=== PATIENT | male | born 1995 | race Caucasian/White ===

== ENCOUNTER 2021-09-23 01:16 | Emergency (ER) | payer MEDICAID ==
--- NOTE | 2021-09-23 02:10 | Emergency Department Report ---
HPI - General Chief Complaint: Psych Time Seen by Provider: 09/23/21 01:42 - HPI HPI: 26-year-old -Eth[place]ian male presents to the emergency department via EMS for a mental health evaluation after he was found wandering in the street. The mother says that she went to use the bathroom and when she came out he was gone and he was found a few blocks down the street. Patient told EMS that he "has murphy." The patient has a history of schizophrenia. They just recently moved up here from [place] and mom says that he was most recently inpatient in a psychiatric facility about 1 month ago. He is not currently on any medications as she says that he was discharged from the psychiatric facility without any. The patient is walking around the contains psychiatric unit in the emergency department and is walking both forwards and backwards. When asked what brings him to the emergency department he says "I have murphy." I asked his mother if he was recently diagnosed and she says that this is not true. ED Past Medical Hx - Past Medical History Hx Psychiatric Treatment: Yes (SCHIZPHRENIA) - Medications Home Medications: Home Medications Medication Instructions Recorded Confirmed Last Taken Type OLANzapine [ZyPREXA] 5 mg PO BID 30 Days #60 tablet 09/23/21 Unknown Rx ED Review of Systems ROS: Stated complaint: PSYCH Other details as noted in HPI Comment: Unobtainable due to pts medical conditions Physical Exam - Physical Exam Physical Exam: GENERAL: The patient is well-developed well-nourished. HENT: Normocephalic. Atraumatic. Patient has moist mucous membranes. EYES: Extraocular motions are intact. NECK: Supple. Trachea is midline. CHEST/LUNGS: Clear to auscultation. There is no respiratory distress noted. HEART/CARDIOVASCULAR: Regular. There is mild tachycardia. There is no murmur. ABDOMEN: Abdomen is soft, nontender. Patient has normal bowel sounds. There is no abdominal distention. SKIN: Skin is warm and dry. NEURO: The patient is awake and alert. He is ambulatory. He is not cooperative. MUSCULOSKELETAL: There is no tenderness or deformity. There is no limitation range of motion. PSYCH: The patient is continuously wandering around the room going between forwards and backwards. ED Medical Decision Making - Lab Data Result diagrams: 09/23/21 01:47 01/22/22 01:47 Lab Results 09/23/21 09/23/21 09/23/21 Range/Units 01:47 01:47 01:47 WBC 3.7 L (4.5-11.0) K/mm3 RBC 5.22 H (3.65-5.03) M/mm3 Hgb 15.0 (11.8-15.2) gm/dl Hct 45.7 H (35.5-45.6) % MCV 88 (84-94) fl MCH 29 (28-32) pg MCHC 33 (32-34) % RDW 14.4 (13.2-15.2) % Plt Count 274 (140-440) K/mm3 Lymph % (Auto) 43.3 H (13.4-35.0) % [place] % (Auto) 9.0 H (0.0-7.3) % Eos % (Auto) 1.1 (0.0-4.3) % Baso % (Auto) 0.7 (0.0-1.8) % Lymph # (Auto) 1.6 (1.2-5.4) K/mm3 Wheeler # (Auto) 0.3 (0.0-0.8) K/mm3 Eos # (Auto) 0.0 (0.0-0.4) K/mm3 Baso # (Auto) 0.0 (0.0-0.1) K/mm3 Seg Neutrophils % 45.9 (40.0-70.0) % Seg Neutrophils # 1.7 L (1.8-7.7) K/mm3 Sodium 145 (137-145) mmol/L Potassium 4.2 (3.6-5.0) mmol/L Chloride 104.9 (98-107) mmol/L Carbon Dioxide 24 (22-30) mmol/L Anion Gap 20 mmol/L BUN 6 L (9-20) mg/dL Creatinine 0.7 L (0.8-1.3) mg/dL Estimated GFR > 60 ml/min BUN/Creatinine Ratio 9 % Glucose 89 (75-100) mg/dL Calcium 10.1 (8.4-10.2) mg/dL Plasma/Serum Alcohol < 0.01 (0-0.07) % - Medical Decision Making This patient presents to the emergency department after he was found wandering down the street from his home. He told EMS that he recently tested positive for COVID-19. After speaking to the patient's mother, he has a history of schizophrenia and is not on any medications. When he has an exacerbation of his schizophrenia he often will just start wandering away from home. The patient is seen walking forwards and backwards around the psychiatric detainment area of the emergency department. He is not redirectable. He does not answer most questions except for when I asked if he was here for a mental health evaluation and he once again told me that he was here because he was positive for COVID-19. His mother denies that he had any recent testing done. In this current state he does not appear to be able to take care of himself and does not have a normal decision-making capacity. For this reason he has been placed on a 1013. Labs thus far have been unremarkable including CBC, metabolic panel and blood alcohol level. He was given a dose of Xanax as he was seen wandering around his psychiatric room for multiple hours without stopping. We are still waiting for a urine sample for urinalysis and UDS. The patient will be seen by the psychiatric team in the morning to do their evaluation and assist with disposition. Critical Care Time: No Critical care attestation.: If time is entered above; I have spent that time in minutes in the direct care of this critically ill patient, excluding procedure time. ED Disposition Clinical Impression: Acute psychosis Disposition: 01 HOME / SELF CARE / HOMELESS Is pt being admited?: No Condition: Stable Additional Instructions: OUTPATIENT MENTAL HEALTH RESOURCES [facility], [facility] Michael Coleman MD: [address] [place] [address] [place] [address] [facility] [address] [place] [address] [place] [address] [phone] [facility]: [facility] Healthcare: [address] [facility] [address] [facility] [address] [place] [address] [facility] [address] [facility]: [place] Mary MD: [address] [facility] [address] [place], [place] [address] [facility]: [address] [place] [phone] [place] CRISIS AND ACCESS LINE: Prescriptions: OLANzapine [ZyPREXA] 5 mg PO BID 30 Days #60 tablet Referrals: PRIMARY CARE, [Primary Care Provider] - 3-5 Days
[2021-09-23 02:35] LABS: Basophils % (Auto) 0.7 % (0.0-1.8); Eosinophils % (Auto) 1.1 % (0.0-4.3); Hematocrit 45.7 % (35.5-45.6); Lymphocytes # (Auto) 1.6 K/mm3 (1.2-5.4); Lymphocytes % (Auto) 43.3 % (13.4-35.0); Mean Corpuscular HGB Conc 33 % (32-34); Mean Corpuscular Volume 88 fl (84-94); Monocytes # (Auto) 0.3 K/mm3 (0.0-0.8); Platelet Count 274 K/mm3 (140-440); Red Blood Count 5.22 M/mm3 (3.65-5.03); Red Cell Distribution Width 14.4 % (13.2-15.2)
[2021-09-23 02:48] LABS: Blood Urea Nitrogen 6 mg/dL (9-20); Calcium 10.1 mg/dL (8.4-10.2); Hemolysis Index 15
[2021-09-23 03:02] LABS: BUN/Creatinine Ratio 9
[2021-09-23] MEDS ORDERED: ALPRAZolam 1 MG TAB PO ONE ×2 (03:30→23:18)
--- NOTE | 2021-09-23 11:08 | Emergency Department Report ---
Blank Doc - Documentation Documentation: Patient is currently waiting on psychiatric evaluation. Urine is still pending. It is unlikely the patient has a urinary tract infection that would cause psychiatric decompensation. We will await psychiatric evaluation and disposition.
--- NOTE | 2021-09-23 11:32 | Consultation ---
History of Present Illness - Reason for Consult Consult date: 09/23/21 Reason for consult: mental health evaluation - History of Present Psychiatric Illness ED Note: 26-year-old -Surinamese male presents to the emergency department via EMS for a mental health evaluation after he was found wandering in the street. The mother says that she went to use the bathroom and when she came out he was gone and he was found a few blocks down the street. Patient told EMS that he "has murphy." The patient has a history of schizophrenia. They just recently moved up here from [place] and mom says that he was most recently inpatient in a psychiatric facility about 1 month ago. He is not currently on any medications as she says that he was discharged from the psychiatric facility without any. The patient is walking around the contains psychiatric unit in the emergency department and is walking both forwards and backwards. When asked what brings him to the emergency department he says "I have murphy." I asked his mother if he was recently diagnosed and she says that this is not true. Larry Anders is a 26 year old male with history of schizophrenia. In my interview with the patient, he is calm, alert and oriented x2. The patient was asked why he came to the ED, he states "I feel like I have murphy virus." The patient is a poor historian hence history was difficult to obtain. The patient denies any current suicidal/homicidal ideation and denies hallucinations. PAST PSYCHIATRIC HISTORY: Diagnoses:Schizophrenia Suicide attempts or Self-harm behavior: Denies Prior psychiatric hospitalizations: Yes Substance Abuse history:Unknown Outpatient treatment: Unknown PAST MEDICAL HISTORY: unknown Family Psychiatric History: None reported or documented SOCIAL HISTORY Marital Status:Single Living Arrangements: Live with mother and brother Employment Status:Unemployed Access to guns/weapons: Denies Education:12th History of Abuse:Denies Legal History: Denies REVIEW OF SYSTEMS Constitutional: Negative for weight loss ENT: Negative for stridor Respiratory: Negative for cough or hemoptysis All other systems reviewed and are negative MENTAL STATUS EXAMINATION General Appearance and Behavior: Age appropriate, good hygiene, wearing appropriate clothes. calm, cooperative Cooperation: Cooperative Psychomotor Behavior: Psychomotor normal Mood:calm Affect and affective range: congruent with stated mood Thought Process: Circumstantial Thought Content: Reality Oriented Speech: normal tone and pace Suicidal Ideation: Denies Homicidal Ideation: Denies Hallucinations: Denies Delusions:Denies Impulse Control: Limited Insight and Judgment: Limited insight and fair judgment Memory: Limited Attention: distracted Orientation: a/o x 2 Assessment (1)Hx of schizophrenia (2) Current Visit: Yes Status: Acute Treatment plan Continue previous prescribed meds Start Zyprexa 5mg po BID Risks, benefits and alternatives of medications discussed with the patient, questions answered and consent obtained from patient. PSYCHOTHERAPY: Supportive psychotherapy provided MEDICAL: Per primary team DELIRIUM PRECAUTIONS: Please re-orient patient frequently, keep lights on during the day, and minimize benzodiazepines and opiates as these medications could worsen patient's confusion. DIAMOND DIE DRILLER: Per medical team DISPOSITION: Do not Recommend acute inpatient psychiatric hospitalization. The patient is to follow up with outpatient psych in 7 to 14 days upon discharge. [employer] will provide patient with out patient resources. she is to abstain from all illicit drug use. Will sign off. Thank you for the consult. Please contact with any questions and/or concerns. Case staffed with Dr. Blandon Medications and Allergies Allergies Allergy/AdvReac Type Severity Reaction Status Date / Time No Known Allergies Allergy Verified 09/23/21 01:26 Home Medications Medication Instructions Recorded Confirmed Last Taken Type OLANzapine [ZyPREXA] 5 mg PO BID 30 Days #60 tablet 09/23/21 Unknown Rx Mental Status Exam - Vital signs Last Vital Signs Temp 98.0 F 09/23/21 02:39 Pulse 119 H 09/23/21 02:39 Resp 20 09/23/21 02:39 BP 145/80 09/23/21 02:39 Pulse Ox 97 09/23/21 02:39 Results Result Diagrams: 09/23/21 01:47 09/23/21 01:47 Abnormal lab results 09/23/21 09/23/21 Range/Units 01:47 01:47 WBC 3.7 L (4.5-11.0) K/mm3 RBC 5.22 H (3.65-5.03) M/mm3 Hct 45.7 H (35.5-45.6) % Lymph % (Auto) 43.3 H (13.4-35.0) % [place] % (Auto) 9.0 H (0.0-7.3) % Seg Neutrophils # 1.7 L (1.8-7.7) K/mm3 BUN 6 L (9-20) mg/dL Creatinine 0.7 L (0.8-1.3) mg/dL All other labs normal.
--- NOTE | 2021-09-23 11:59 | Event Note ---
1013 rescinded by mental health team. Patient is discharged home. Patient given outpatient resources and prescription for Zyprexa.
[2021-09-23 23:05] LABS: Bilirubin,Urine NEG (Negative); Blood,Urine NEG (Negative); Color,Urine Straw (Yellow); Protein,Urine <15 mg/dL mg/dL (Negative); Urobilinogen,Urine < 2.0 mg/dL (<2.0); WBC,Urine < 1.0 /HPF (0.0-6.0)
[2021-09-23 23:09] LABS: Amphetamine Screen,Urine Negative; Benzodiazepines Screen,Urine Negative; Cannabinoid Screen,Urine Negative; Cocaine Screen,Urine Negative; Methadone Screen,Urine Negative; Opiate Screen,Urine Negative
--- NOTE | 2021-09-24 11:42 | Emergency Department Report ---
Blank Doc - Documentation Documentation: Patient had been seen here for psychiatric issues. Patient was medically sumaya red and psychiatrically cleared. Unfortunately, we cannot get his guardian to picker tender the phone to come picker tender the patient. Case management is aware. I have asked the police to be notified and sent to the home. I have asked that Adult Protective Services be notified for patient abandonment.
--- NOTE | 2021-09-25 11:49 | Event Note ---
Date: 09/25/21 S: No events reported overnight O: Vital Signs - 8 hr 09/25/21 09:40 O2 Sat by Pulse 97 Oximetry A: Clear medically and by psych P: Awaiting safe discharge to guardian. Has been unable to contact her guardian for safe discharge PD has been contacted and attempt to locate guardian.
--- NOTE | 2021-09-26 11:15 | Event Note ---
Date: 09/26/21 pt was assessed , no risk at this time, dishcarge with OP follow up in 7-qr days vss no distress ab are nad
[2021-09-26] MEDS ORDERED: ZIPRASIDONE MESYLATE 20 MG VIAL IM PRN (13:34)
[2021-09-27 10:01] VITALS: BP 100/52
--- NOTE | 2021-09-27 11:34 | Emergency Department Report ---
Blank Doc - Documentation Documentation: Apparently the mother reportedly had no way of picking up her child. I have a sked for case management to arrange transfer. Patient will be discharged. There is no medical reason to keep the patient here when he could be placed in a taxi or over or even have police or some other wheelchair van transport the patient. I have also asked that Adult Protective Services be notified yet again of patient abandonment.
== END 2021-09-27 13:31 | disposition home or self-care (01) ==
LOC: ED 01:16
DX: F23 Brief psychotic disorder (principal); Z79.899 Other long term (current) drug therapy; Z20.822 Contact with and (suspected) exposure to COVID-19
CPT/HCPCS: 36415; 80048; 80307; 81001; 85025; 96372; 99284; J3486; U0003; 80320; G0480

== ENCOUNTER 2021-10-08 18:54 | Emergency (ER) | payer MEDICAID ==
--- NOTE | 2021-10-08 19:36 | Event Note ---
Date: 10/08/21 The patient was evaluated in the emergency department for symptoms described in the history of present illness. He/she was evaluated in the context of the global COVID-19 pandemic, which necessitated consideration that the patient might be at risk for infection with the virus that causes COVID-19. Institutional protocols and algorithms that pertain to the evaluation of patients at risk for COVID-19 are in a state of rapid change based on information released by regulatory bodies including the CDC and federal and state organizations. These policies and algorithms were followed during the patient's care in the emergency department. Please note that these policies, procedures and recommendations changed on a rapid basis. EMS documentation not available at time of chart dictation Verbal report received from emergency medical services Patient is a 26-year-old gentleman with a reported history of developmental delay and schizophrenia as per EMS, who was brought to the hospital because he is wandering. The patient is not agitated or combative at this time. Place patient on hold status, obtain appropriate psychiatric labs for medical clearance, detailed history and physical to be performed by oncoming ER provider.
--- NOTE | 2021-10-08 20:39 | XRay Report ---
CHEST 2 VIEWS INDICATION / CLINICAL INFORMATION: sob. COMPARISON: None available. FINDINGS: SUPPORT DEVICES: None. HEART / MEDIASTINUM: No significant abnormality. LUNGS / PLEURA: No significant pulmonary or pleural abnormality. No pneumothorax. ADDITIONAL FINDINGS: No significant additional findings. IMPRESSION: 1. No acute findings. Signer Name: Brandy Smyth MD Signed: 10/08/2021 8:34 PM Workstation Name: [id number]
--- NOTE | 2021-10-08 20:45 | Emergency Department Report ---
HPI - General Chief Complaint: Psych Time Seen by Provider: 10/08/21 19:17 - HPI HPI: 26-year-old male with history of schizophrenia and developmental delay brought in after he was found on the streets wandering. The patient says that he is here for shortness of breath. When asked how long he has had shortness of breath he says since yesterday. He denies any other associated symptoms including fever/chills headache, vision changes, neck pain, chest pain, cough, abdominal pain, nausea/vomiting, back pain, focal weakness, sensory change, dysuria, or any other symptoms. He is alert and oriented x4. He denies SI/HI or auditory/visual hallucinations. However, the patient is seen mumbling/speaking to himself. Further details of the HPI are highly limited due to the patient's current clinical condition. ED Past Medical Hx - Past Medical History Previous Medical History?: Yes Hx Psychiatric Treatment: Yes (SCHIZPHRENIA) - Surgical History Past Surgical History?: No - Medications Home Medications: Home Medications Medication Instructions Recorded Confirmed Last Taken Type OLANzapine [ZyPREXA] 5 mg PO BID 30 Days #60 tablet 10/09/21 Unknown Rx ED Review of Systems ROS: Stated complaint: PT WANDERING Other details as noted in HPI Comment: All other systems reviewed and negative Constitutional: denies: chills, fever Eyes: denies: eye pain, vision change ENT: denies: throat pain, congestion Respiratory: shortness of breath. denies: cough Cardiovascular: denies: chest pain, palpitations Gastrointestinal: denies: abdominal pain, nausea, vomiting Genitourinary: denies: dysuria, frequency Musculoskeletal: denies: back pain, arthralgia Skin: denies: rash, lesions Neurological: denies: headache, weakness, numbness Psychiatric: denies: auditory hallucinations, visual hallucinations, homicidal thoughts, suicidal thoughts Physical Exam - Physical Exam Vital Signs: Vital Signs 10/08/21 19:07 Temperature 98.2 F Pulse Rate 70 Respiratory 16 Rate Blood Pressure 140/60 [Left] O2 Sat by Pulse 98 Oximetry Physical Exam: GENERAL: Thin young male in no acute distress. Appears anxious. Patient seen speaking and mumbling to himself. HEAD: Normocephalic. No obvious signs of trauma. ENT: Moist mucous membranes. EYES: Extraocular movements are intact. Pupils are equal round and reactive to light bilaterally NECK: Supple. Full ROM is intact. Trachea is midline. LUNGS: Nonlabored breathing. Equal chest rise bilaterally. Clear to auscultation bilaterally. CARDIOVASCULAR: Regular rate and rhythm. No murmurs or rubs. VASCULAR: Cap refill < 2 seconds ABDOMEN: Abdomen is soft and nondistended. There is no significant tenderness, guarding or rebound. SKIN: Skin is warm and dry NEURO: Patient is awake, alert, and oriented. vendette II-XII grossly intact. No focal deficits. Normal motor and sensory exam throughout. Normal speech. MUSCULOSKELETAL: No obvious deformities. No significant tenderness. Normal ROM throughout. BACK/SPINE: No costovertebral angle tenderness. ED Course Vital Signs 10/08/21 19:07 Temperature 98.2 F Pulse Rate 70 Respiratory 16 Rate Blood Pressure 140/60 [Left] O2 Sat by Pulse 98 Oximetry ED Medical Decision Making - Lab Data Result diagrams: 10/08/21 21:21 10/09/21 04:55 Lab Results 10/08/21 10/08/21 10/08/21 Range/Units 20:44 20:44 21:21 WBC 4.2 L (4.5-11.0) K/mm3 RBC 4.78 (3.65-5.03) M/mm3 Hgb 13.8 (11.8-15.2) gm/dl Hct 41.8 (35.5-45.6) % MCV 88 (84-94) fl MCH 29 (28-32) pg MCHC 33 (32-34) % RDW 14.5 (13.2-15.2) % Plt Count 293 (140-440) K/mm3 Lymph % (Auto) 33.5 (13.4-35.0) % Glynn % (Auto) 8.2 H (0.0-7.3) % Eos % (Auto) 1.3 (0.0-4.3) % Baso % (Auto) 0.5 (0.0-1.8) % Lymph # (Auto) 1.4 (1.2-5.4) K/mm3 Glynn # (Auto) 0.3 (0.0-0.8) K/mm3 Eos # (Auto) 0.1 (0.0-0.4) K/mm3 Baso # (Auto) 0.0 (0.0-0.1) K/mm3 Seg Neutrophils % 56.5 (40.0-70.0) % Seg Neutrophils # 2.4 (1.8-7.7) K/mm3 Sodium (137-145) mmol/L Potassium (3.6-5.0) mmol/L Chloride (98-107) mmol/L Carbon Dioxide (22-30) mmol/L Anion Gap mmol/L BUN (9-20) mg/dL Creatinine (0.8-1.3) mg/dL Estimated GFR ml/min BUN/Creatinine Ratio % Glucose (75-100) mg/dL Calcium (8.4-10.2) mg/dL Urine Color Straw (Yellow) Urine Turbidity Clear (Clear) Urine pH 5.0 (5.0-7.0) Ur Specific [place] 1.016 (1.003-1.030) Urine Protein <15 mg/dl (Negative) mg/dL Urine Glucose (UA) Neg (Negative) mg/dL Urine Ketones Neg (Negative) mg/dL Urine Blood Neg (Negative) Urine Nitrite Neg (Negative) Urine Bilirubin Neg (Negative) Urine Urobilinogen < 2.0 (<2.0) mg/dL Ur Leukocyte Esterase Neg (Negative) Urine WBC (Auto) 1.0 (0.0-6.0) /HPF Urine RBC (Auto) 0.0 (0.0-6.0) /HPF Salicylates (2.8-20.0) mg/dL Urine Opiates Screen Negative Urine Methadone Screen Negative Acetaminophen (10.0-30.0) ug/mL Ur Barbiturates Screen Negative Ur Phencyclidine Scrn Negative Ur Amphetamines Screen Negative U Benzodiazepines Scrn Negative Urine Cocaine Screen Negative U Marijuana (THC) Screen Negative Drugs of Abuse Note Disclamer Plasma/Serum Alcohol (0-0.07) % 10/08/21 10/08/21 10/08/21 Range/Units 21:21 21:21 21:21 WBC (4.5-11.0) K/mm3 RBC (3.65-5.03) M/mm3 Hgb (11.8-15.2) gm/dl Hct (35.5-45.6) % MCV (84-94) fl MCH (28-32) pg MCHC (32-34) % RDW (13.2-15.2) % Plt Count (140-440) K/mm3 Lymph % (Auto) (13.4-35.0) % Glynn % (Auto) (0.0-7.3) % Eos % (Auto) (0.0-4.3) % Baso % (Auto) (0.0-1.8) % Lymph # (Auto) (1.2-5.4) K/mm3 Glynn # (Auto) (0.0-0.8) K/mm3 Eos # (Auto) (0.0-0.4) K/mm3 Baso # (Auto) (0.0-0.1) K/mm3 Seg Neutrophils % (40.0-70.0) % Seg Neutrophils # (1.8-7.7) K/mm3 Sodium 146 H (137-145) mmol/L Potassium 4.0 (3.6-5.0) mmol/L Chloride 108.2 H (98-107) mmol/L Carbon Dioxide 24 (22-30) mmol/L Anion Gap 18 mmol/L BUN 9 (9-20) mg/dL Creatinine 0.7 L (0.8-1.3) mg/dL Estimated GFR > 60 ml/min BUN/Creatinine Ratio 13 % Glucose 115 H (75-100) mg/dL Calcium 9.5 (8.4-10.2) mg/dL Urine Color (Yellow) Urine Turbidity (Clear) Urine pH (5.0-7.0) Ur Specific [place] (1.003-1.030) Urine Protein (Negative) mg/dL Urine Glucose (UA) (Negative) mg/dL Urine Ketones (Negative) mg/dL Urine Blood (Negative) Urine Nitrite (Negative) Urine Bilirubin (Negative) Urine Urobilinogen (<2.0) mg/dL Ur Leukocyte Esterase (Negative) Urine WBC (Auto) (0.0-6.0) /HPF Urine RBC (Auto) (0.0-6.0) /HPF Salicylates < 0.3 L (2.8-20.0) mg/dL Urine Opiates Screen Urine Methadone Screen Acetaminophen 5.0 L (10.0-30.0) ug/mL Ur Barbiturates Screen Ur Phencyclidine Scrn Ur Amphetamines Screen U Benzodiazepines Scrn Urine Cocaine Screen U Marijuana (THC) Screen Drugs of Abuse Note Plasma/Serum Alcohol (0-0.07) % 10/08/21 Range/Units 21:21 WBC (4.5-11.0) K/mm3 RBC (3.65-5.03) M/mm3 Hgb (11.8-15.2) gm/dl Hct (35.5-45.6) % MCV (84-94) fl MCH (28-32) pg MCHC (32-34) % RDW (13.2-15.2) % Plt Count (140-440) K/mm3 Lymph % (Auto) (13.4-35.0) % Glynn % (Auto) (0.0-7.3) % Eos % (Auto) (0.0-4.3) % Baso % (Auto) (0.0-1.8) % Lymph # (Auto) (1.2-5.4) K/mm3 Glynn # (Auto) (0.0-0.8) K/mm3 Eos # (Auto) (0.0-0.4) K/mm3 Baso # (Auto) (0.0-0.1) K/mm3 Seg Neutrophils % (40.0-70.0) % Seg Neutrophils # (1.8-7.7) K/mm3 Sodium (137-145) mmol/L Potassium (3.6-5.0) mmol/L Chloride (98-107) mmol/L Carbon Dioxide (22-30) mmol/L Anion Gap mmol/L BUN (9-20) mg/dL Creatinine (0.8-1.3) mg/dL Estimated GFR ml/min BUN/Creatinine Ratio % Glucose (75-100) mg/dL Calcium (8.4-10.2) mg/dL Urine Color (Yellow) Urine Turbidity (Clear) Urine pH (5.0-7.0) Ur Specific [place] (1.003-1.030) Urine Protein (Negative) mg/dL Urine Glucose (UA) (Negative) mg/dL Urine Ketones (Negative) mg/dL Urine Blood (Negative) Urine Nitrite (Negative) Urine Bilirubin (Negative) Urine Urobilinogen (<2.0) mg/dL Ur Leukocyte Esterase (Negative) Urine WBC (Auto) (0.0-6.0) /HPF Urine RBC (Auto) (0.0-6.0) /HPF Salicylates (2.8-20.0) mg/dL Urine Opiates Screen Urine Methadone Screen Acetaminophen (10.0-30.0) ug/mL Ur Barbiturates Screen Ur Phencyclidine Scrn Ur Amphetamines Screen U Benzodiazepines Scrn Urine Cocaine Screen U Marijuana (THC) Screen Drugs of Abuse Note Plasma/Serum Alcohol < 0.01 (0-0.07) % - Radiology Data Radiology results: report reviewed - Medical Decision Making 26-year-old male with history of schizophrenia brought in by EMS after he was found wandering outside. Patient reports that he is short of breath since yesterday. He denies SI/HI and denies visual or auditory hallucinations. However he is seen speaking to himself and appears anxious. His behavior is disorganized and consistent with acute psychosis. He is afebrile with normal vital signs. Physical examination reveals no significant abnormalities. Lungs are clear to auscultation. Given that the patient is acutely psychotic, I have ordered psych medical clearance labs. Will sign and initiate 1013 order. Will obtain chest x-ray given his reported shortness of breath, although I do not feel he is a reliable historian. Labs have resulted and reveal no significant leukocytosis or anemia. He has mild leukopenia with white blood cell count of 4.2. Creatinine is within normal range and there are no significant electrolyte abnormalities. UA is negative. While in the psych area, the patient became very agitated and was seen playing with his genitals. He was given Haldol/Benadryl for his agitation and acute psychosis. Chest x-ray reveals no acute abnormalities. The patient is medically clear for psychiatric evaluation and placement. Critical care attestation.: If time is entered above; I have spent that time in minutes in the direct care of this critically ill patient, excluding procedure time. ED Disposition Clinical Impression: Encounter for behavioral health screening, Encounter for medical screening examination Disposition: 01 HOME / SELF CARE / HOMELESS Is pt being admited?: No Condition: Good Additional Instructions: Please continue current outpatient medications. Please follow-up with your outpatient psychiatrist and mental health specialist within the next week. Please follow-up with an outpatient primary care doctor within the next 2 weeks. Follow-up with outpatient resources that are provided to the patient. Avoid consumption of alcohol, tobacco, drugs and smoke products. Please return to the emergency room right away with new pain, worsened pain, migration of pain, projectile vomiting, change in mental status, confusion, inability tolerate liquid feeds, new, worsened or different symptoms not present on the initial emergency room evaluation professional and Agency Contacts To help [facility] Crises(25/03) [place] Crisis Line: Suicide Prevention Line: Crisis Text Line: Text START to 418551 Emergency: 911 Outpatient COMMUNITY Behavioral Health Resources: TRI: [facility] [address] [place], [place] [address] SONIA: [facility] - [facility] [address] [place] [address] SOHA: [facility] - [address] [place] [address] Saturday thru Saturday - 8am - 5pm DOUGLAS: [facility] Address: [address] [place] [address] MENDIOLA: [facility] Address: [address] [place] [address] Saturday thru Saturday- 7am-2pm [facility] Address: [address] [place] [address] Saturday thru Saturday: 8:30AM-5PM OUTPATIENT MENTAL HEALTH RESOURCES [facility], [address] [place], [place] [id number] [facility] Michael Coleman MD: [address] [facility] [address] [place], [place] [id number] [facility]: [address] [place], [place] [id number] [employer] [place], [place] [id number] [phone] [facility]: [address] [facility] [address] [place] [address] [facility]: [address] [facility] [address] [facility] [address] [facility]: [address] [place] [address] Ridge Mary MD: [address] [facility] [address] [facility]: [address] [place], [place] [address] [address] [phone] [place] CRISIS AND ACCESS LINE: * Prescriptions: OLANzapine [ZyPREXA] 5 mg PO BID 30 Days #60 tablet Referrals: [facility] [Provider Group] - 3-5 Days [facility] [Outside] - 3-5 Days [facility] [Outside] - 3-5 Days
[2021-10-08 20:58] LABS: Bilirubin,Urine NEG (Negative); Blood,Urine NEG (Negative); Color,Urine Straw (Yellow); Protein,Urine <15 mg/dL mg/dL (Negative); Urobilinogen,Urine < 2.0 mg/dL (<2.0)
[2021-10-08 21:06] LABS: Amphetamine Screen,Urine Negative; Benzodiazepines Screen,Urine Negative; Cannabinoid Screen,Urine Negative; Cocaine Screen,Urine Negative; Methadone Screen,Urine Negative; Opiate Screen,Urine Negative
[2021-10-08] MEDS ORDERED: HALOPERIDOL LACTATE 5 MG/1 ML INJ IM ONE (21:25)
[2021-10-08] MEDS ORDERED: diphenhydrAMINE 50 MG/ML VIAL IV ONE (21:27)
[2021-10-08 21:40] LABS: Basophils % (Auto) 0.5 % (0.0-1.8); Eosinophils # (Auto) 0.1 K/mm3 (0.0-0.4); Eosinophils % (Auto) 1.3 % (0.0-4.3); Hematocrit 41.8 % (35.5-45.6); Hemoglobin 13.8 gm/dl (11.8-15.2); Lymphocytes # (Auto) 1.4 K/mm3 (1.2-5.4); Lymphocytes % (Auto) 33.5 % (13.4-35.0); Mean Corpuscular HGB Conc 33 % (32-34); Mean Corpuscular Volume 88 fl (84-94); Monocytes # (Auto) 0.3 K/mm3 (0.0-0.8); Monocytes % (Auto) 8.2 % (0.0-7.3); Platelet Count 293 K/mm3 (140-440); Red Blood Count 4.78 M/mm3 (3.65-5.03); Red Cell Distribution Width 14.5 % (13.2-15.2)
[2021-10-08 21:53] LABS: Blood Urea Nitrogen 9 mg/dL (9-20); Calcium 9.5 mg/dL (8.4-10.2); Hemolysis Index 19
[2021-10-08 21:59] LABS: BUN/Creatinine Ratio 13
[2021-10-09 05:30] LABS: Blood Urea Nitrogen 8 mg/dL (9-20); Calcium 9.7 mg/dL (8.4-10.2); Hemolysis Index 22
[2021-10-09 05:33] LABS: BUN/Creatinine Ratio 11
--- NOTE | 2021-10-09 10:27 | Consultation ---
History of Present Illness - Reason for Consult Consult date: 10/09/21 Reason for consult: Mental health evaluation - History of Present Psychiatric Illness ED Note: 26-year-old male with history of schizophrenia and developmental delay brought in after he was found on the streets wandering. The patient says that he is here for shortness of breath. When asked how long he has had shortness of breath he says since yesterday. He denies any other associated symptoms including fever/chills headache, vision changes, neck pain, chest pain, cough, abdominal pain, nausea/vomiting, back pain, focal weakness, sensory change, dysuria, or any other symptoms. He is alert and oriented x4. He denies SI/HI or auditory/visual hallucinations. However, the patient is seen mumbling/speaking to himself. Further details of the HPI are highly limited due to the patient's current clinical condition. aLrry Anders is a 26 year old male with history of schizophrenia and intellectual disability. The patient was seen pacing and responding to internal stimuli. The patient was asked why he came to the ED, he states "I have breathing problem." The patient is a poor historian hence history was difficult to obtain. The patient denies any current suicidal/homicidal ideation and denies hallucinations. PAST PSYCHIATRIC HISTORY: Diagnoses:Schizophrenia, intellectual disability Suicide attempts or Self-harm behavior: Denies Prior psychiatric hospitalizations: Yes Substance Abuse history:Unknown Outpatient treatment: Unknown PAST MEDICAL HISTORY: unknown Family Psychiatric History: None reported or documented SOCIAL HISTORY Marital Status:Single Living Arrangements: Live with mother and brother Employment Status:Unemployed Access to guns/weapons: Denies Education:12th History of Abuse:Denies Legal History: Denies REVIEW OF SYSTEMS Constitutional: Negative for weight loss ENT: Negative for stridor Respiratory: Negative for cough or hemoptysis All other systems reviewed and are negative MENTAL STATUS EXAMINATION General Appearance and Behavior: Age appropriate, good hygiene, wearing appropriate clothes. calm, cooperative Cooperation: Cooperative Psychomotor Behavior: Psychomotor normal Mood:confused Affect and affective range: congruent with stated mood Thought Process: Circumstantial Thought Content: Confused Speech: normal tone and pace Suicidal Ideation: Denies Homicidal Ideation: Denies Hallucinations: Denies Delusions:Denies Impulse Control: Limited Insight and Judgment: poor insight and poor judgment Memory: Limited Attention: distracted Orientation: a/o x 2 Assessment (1)Hx of schizophrenia (2) Current Visit: Yes Status: Acute Treatment plan Continue previous prescribed meds Start Zyprexa 5mg po BID Risks, benefits and alternatives of medications discussed with the patient, questions answered and consent obtained from patient. PSYCHOTHERAPY: Supportive psychotherapy provided MEDICAL: Per primary team DELIRIUM PRECAUTIONS: Please re-orient patient frequently, keep lights on during the day, and minimize benzodiazepines and opiates as these medications could worsen patient's confusion. BEVERAGE HOST: Per medical team DISPOSITION: Do not Recommend acute inpatient psychiatric hospitalization. The patient is to follow up with outpatient psych in 7 to 14 days upon discharge. Paid Internship will provide patient with out patient resources. Will sign off. Thank you for the consult. Please contact with any questions and/or concerns. Case staffed with Dr. Blandon Medications and Allergies Allergies Allergy/AdvReac Type Severity Reaction Status Date / Time No Known Allergies Allergy Verified 09/23/21 01:26 Home Medications Medication Instructions Recorded Confirmed Last Taken Type OLANzapine [ZyPREXA] 5 mg PO BID 30 Days #60 tablet 09/23/21 Unknown Rx Mental Status Exam - Vital signs Last Vital Signs Temp 97.9 F 10/09/21 05:14 Pulse 61 10/09/21 05:14 Resp 16 10/09/21 05:33 BP 113/60 10/09/21 05:14 Pulse Ox 100 10/09/21 05:33 Results Result Diagrams: 10/08/21 21:21 10/09/21 04:55 Abnormal lab results 10/08/21 10/08/21 10/08/21 Range/Units 21:21 21:21 21:21 WBC 4.2 L (4.5-11.0) K/mm3 [place] % (Auto) 8.2 H (0.0-7.3) % Sodium 146 H (137-145) mmol/L Chloride 108.2 H (98-107) mmol/L BUN (9-20) mg/dL Creatinine 0.7 L (0.8-1.3) mg/dL Glucose 115 H (75-100) mg/dL Salicylates < 0.3 L (2.8-20.0) mg/dL Acetaminophen (10.0-30.0) ug/mL 10/08/21 10/09/21 Range/Units 21:21 04:55 WBC (4.5-11.0) K/mm3 [place] % (Auto) (0.0-7.3) % Sodium (137-145) mmol/L Chloride (98-107) mmol/L BUN 8 L (9-20) mg/dL Creatinine 0.7 L (0.8-1.3) mg/dL Glucose (75-100) mg/dL Salicylates (2.8-20.0) mg/dL Acetaminophen 5.0 L (10.0-30.0) ug/mL All other labs normal.
--- NOTE | 2021-10-09 11:43 | Event Note ---
Date: 10/09/21 The patient was evaluated in the emergency department for symptoms described in the history of present illness. He/she was evaluated in the context of the global COVID-19 pandemic, which necessitated consideration that the patient might be at risk for infection with the virus that causes COVID-19. Institutional protocols and algorithms that pertain to the evaluation of patients at risk for COVID-19 are in a state of rapid change based on information released by regulatory bodies including the CDC and federal and state organizations. These policies and algorithms were followed during the patient's care in the emergency department. Please note that these policies, procedures and recommendations changed on a rapid basis. Laboratory studies, vital signs, nursing documentation, ER documentation, and psychiatric documentation are reviewed and appreciated. Nursing team reports no acute events this morning or concerns. The patient is awake and ambulating and does not appear to be in any acute distress. The patient was deemed medically suitable for psychiatric disposition and placement during his initial ER evaluation. The psychiatric team have recommended discharge and did not recommend 1013 or involuntary hold. [employer]al [employer] As[employer]er/nursing team to get in touch with patient's family to arrange pickup. We did call up the listed Aby Mahmood [phone] phone number for the patient's mother, and the paramedics/nursing team reported to me that this is an incorrect number. We have therefore instructed registration and paramedi c/nursing team to obtain correct and up-to-date phone number so we may contact patient's family. Presuming a family member can be contacted and will be able to pick this patient up, he may be discharged As per review of prior documentation, alternative phone number is as follows [phone] Parent of Larry Anders Called up this number, nobody answered, left voicemail for call back. As per review of her case management notes and documentation, Police Department had to be involved, and eventually this case was escalated to Adult Protective Services I will therefore have charge nurse contact local police department to do a well check on the patient's mother, and also involve case management to arrange for safe and appropriate disposition to avoid a prolonged stay here in the emergency room The patient at this time remains medically and psychiatrically suitable for disposition/discharge home. 12: 47: 10/09/2021 the case management team have been able to get in touch with the patient's mother. The mother reported to the case management team that she will be able to accept the patient home. Mother reported to the case management team that this patient typically receives transportation home. Mother does have questions about the patient's wandering and medications, and have therefore instructed case management team to coordinate communication between the psychiatry team, and the patient's mother. At this point time, do not require escalation to police department or Adult Protective Services
[2021-10-10 01:19] VITALS: BP 122/72
== END 2021-10-10 01:16 | disposition home or self-care (01) ==
LOC: ED 18:54
DX: F20.9 Schizophrenia, unspecified (principal); Z20.822 Contact with and (suspected) exposure to COVID-19; R05.9 Cough, unspecified; R06.02 Shortness of breath; Z79.899 Other long term (current) drug therapy
CPT/HCPCS: 36415; 71046; 80048; 80307; 81001; 85025; 96372; 96374; 99285; J1200; J1630; U0003; 80320; G0480

== ENCOUNTER 2022-02-02 17:35 | Emergency (ER) | payer MEDICAID ==
[2022-02-02 17:44] VITALS: BP 130/80
== END 2022-02-02 19:45 | disposition admitted as inpatient to this hospital (09) ==
LOC: ED 17:35
DX: K59.00 Constipation, unspecified (principal); Z53.21 Procedure and treatment not carried out due to patient leaving prior to being seen by health care provider

== ENCOUNTER 2022-02-02 18:25 | Emergency (ER) | payer MEDICAID | END 2022-02-02 19:45 | disposition left against medical advice (07) | LOC: ED 18:25 | DX: K59.00 Constipation, unspecified (principal); Z53.21 Procedure and treatment not carried out due to patient leaving prior to being seen by health care provider ==

== ENCOUNTER 2022-02-10 17:14 | Emergency (ER) | payer MEDICAID ==
[2022-02-10 19:26] LABS: Basophils % (Auto) 0.6 % (0.0-1.8); Eosinophils % (Auto) 1.1 % (0.0-4.3); Hematocrit 38.6 % (35.5-45.6); Hemoglobin 13.5 gm/dl (11.8-15.2); Lymphocytes # (Auto) 1.7 K/mm3 (1.2-5.4); Lymphocytes % (Auto) 40.4 % (13.4-35.0); Mean Corpuscular HGB Conc 35 % (32-34); Mean Corpuscular Volume 88 fl (84-94); Monocytes # (Auto) 0.3 K/mm3 (0.0-0.8); Monocytes % (Auto) 8.1 % (0.0-7.3); Platelet Count 351 K/mm3 (140-440); Red Cell Distribution Width 14.2 % (13.2-15.2)
[2022-02-10 19:50] LABS: Blood Urea Nitrogen 13 mg/dL (9-20); Calcium 10.4 mg/dL (8.4-10.2); Hemolysis Index 5
[2022-02-10 19:57] LABS: BUN/Creatinine Ratio 19
--- NOTE | 2022-02-10 22:21 | Emergency Department Report ---
ED Psych HPI - General Chief Complaint: Psych Stated Complaint: MH EVAL Time Seen by Provider: 02/10/22 18:02 Source: EMS Mode of arrival: Ambulatory - History of Present Illness Initial Comments: pt talking to himself, denies si/hi pt has history of schizophrenia non compliance here today for hallucination and delusion, has been hearing voices and responding to internal stimuli , no SI or HI MD Complaint: other -: week(s) Associated Psychiatric Symptoms: auditory hallucinations History of same: Yes Quality: intermittent Associated Symptoms: denies: denies other symptoms, confusion, headache - Related Data Previous Rx's Medication Instructions Recorded Last Taken Type OLANzapine [ZyPREXA] 5 mg PO BID 30 Days #60 tablet 10/09/21 Unknown Rx Allergies Allergy/AdvReac Type Severity Reaction Status Date / Time No Known Allergies Allergy Verified 02/03/22 05:22 ED Review of Systems ROS: Stated complaint: MH EVAL Other details as noted in HPI Constitutional: denies: chills, fever Eyes: denies: eye pain, eye discharge, vision change ENT: denies: ear pain, throat pain Respiratory: denies: cough, shortness of breath, wheezing Cardiovascular: denies: chest pain, palpitations Endocrine: no symptoms reported Gastrointestinal: denies: abdominal pain, nausea, diarrhea Genitourinary: denies: urgency, dysuria Musculoskeletal: denies: back pain, joint swelling, arthralgia Skin: denies: rash, lesions Neurological: denies: headache, weakness, paresthesias Psychiatric: denies: anxiety, depression Hematological/Lymphatic: denies: easy bleeding, easy bruising ED Past Medical Hx - Past Medical History Previous Medical History?: Yes Hx Psychiatric Treatment: Yes (SCHIZPHRENIA) - Medications Home Medications: Home Medications Medication Instructions Recorded Confirmed Last Taken Type OLANzapine [ZyPREXA] 5 mg PO BID 30 Days #60 tablet 10/09/21 Unknown Rx ED Physical Exam - General Limitations: No Limitations General appearance: alert, anxious - Head Head exam: Present: atraumatic, normocephalic - Eye Eye exam: Present: normal appearance - ENT ENT exam: Present: mucous membranes moist - Neck Neck exam: Present: normal inspection - Respiratory Respiratory exam: Present: normal lung sounds bilaterally. Absent: respiratory distress - Cardiovascular Cardiovascular Exam: Present: regular rate, normal rhythm. Absent: systolic murmur, diastolic murmur, rubs, gallop - GI/Abdominal GI/Abdominal exam: Present: soft, normal bowel sounds - Rectal Rectal exam: Present: deferred - Extremities Exam Extremities exam: Present: normal inspection - Back Exam Back exam: Present: normal inspection - Neurological Exam Neurological exam: Present: alert, oriented X3 - Psychiatric Psychiatric exam: Present: anxious - Skin Skin exam: Present: warm, dry, intact, normal color. Absent: rash ED Course Vital Signs 02/10/22 02/10/22 02/11/22 17:22 22:08 10:56 Temperature 98.1 F 98.4 F Pulse Rate 89 80 66 Respiratory 18 16 16 Rate Blood Pressure 129/81 116/89 134/90 [Left] O2 Sat by Pulse 98 100 98 Oximetry ED Medical Decision Making - Lab Data Result diagrams: 02/10/22 19:16 02/10/22 19:16 Critical care attestation.: If time is entered above; I have spent that time in minutes in the direct care of this critically ill patient, excluding procedure time. ED Disposition Clinical Impression: Psychosis, Hallucination Disposition: [address] [place] [address] Is pt being admited?: No Does the pt Need Aspirin: No Condition: Stable Referrals: PRIMARY CARE, [Primary Care Provider] - 3-5 Days
[2022-02-11] MEDS ORDERED: ZIPRASIDONE MESYLATE 20 MG VIAL IM ONE ×2 (02:23→09:13)
[2022-02-11] MEDS ORDERED: diphenhydrAMINE 25 MG CAP PO ONE (09:03)
[2022-02-11] MEDS ORDERED: diphenhydrAMINE 50 MG/ML VIAL IM ONE (09:22)
--- NOTE | 2022-02-11 10:37 | Consultation ---
History of Present Illness - Reason for Consult Consult date: 02/11/22 Reason for consult: Mental health evaluation - History of Present Psychiatric Illness The patient is a 26 year old male with history of Schizophrenia and medication noncompliant. He was seen pacing the hallway and responding to internal stimuli. PAST PSYCHIATRIC HISTORY: PAST MEDICAL HISTORY: None reported or document Family Psychiatric History: None reported or documented SOCIAL HISTORY REVIEW OF SYSTEMS MENTAL STATUS EXAMINATION Diagnoses: Schizophrenia Treatment Plan 1013 Start Haldol 5mg po BID Start Trazodone 50mg po QHS Medical: per primary Sitter: defer to primary Disposition: recommend acute psychiatric inpatient treatment Will follow. Thanks Case staffed with Dr. Blandon Medications and Allergies Medications and Allergies Medications and Allergies Allergies Allergy/AdvReac Type Severity Reaction Status Date / Time No Known Allergies Allergy Verified 02/03/22 05:22 Home Medications Medication Instructions Recorded Confirmed Last Taken Type OLANzapine [ZyPREXA] 5 mg PO BID 30 Days #60 tablet 10/09/21 Unknown Rx Mental Status Exam - Vital signs Last Vital Signs Temp 98.1 F 02/10/22 17:22 Pulse 80 02/10/22 22:08 Resp 16 02/10/22 22:08 BP 116/89 02/10/22 22:08 Pulse Ox 100 02/10/22 22:08 Results Result Diagrams: 02/10/22 19:16 02/10/22 19:16 Abnormal lab results 02/10/22 02/10/22 02/10/22 Range/Units 19:16 19:16 19:16 WBC 4.1 L (4.5-11.0) K/mm3 MCHC 35 H (32-34) % Lymph % (Auto) 40.4 H (13.4-35.0) % [place]le % (Auto) 8.1 H (0.0-7.3) % Creatinine 0.7 L (0.8-1.3) mg/dL Calcium 10.4 H (8.4-10.2) mg/dL Salicylates < 0.3 L (2.8-20.0) mg/dL Acetaminophen (10.0-30.0) ug/mL 02/10/22 Range/Units 19:16 WBC (4.5-11.0) K/mm3 MCHC (32-34) % Lymph % (Auto) (13.4-35.0) % [place]eadle % (Auto) (0.0-7.3) % Creatinine (0.8-1.3) mg/dL Calcium (8.4-10.2) mg/dL Salicylates (2.8-20.0) mg/dL Acetaminophen 5.0 L (10.0-30.0) ug/mL All other labs normal.
[2022-02-11] MEDS ORDERED: diphenhydrAMINE 50 MG/ML VIAL IV ONE (12:00)
--- NOTE | 2022-02-11 12:24 | Emergency Department Report ---
Blank Doc - Documentation Documentation: S: No events reported overnight O: Vital Signs - 8 hr 02/11/22 10:56 Temperature 98.4 F Pulse Rate 66 Respiratory 16 Rate Blood Pressure 134/90 [Left] O2 Sat by Pulse 98 Oximetry A: Schizophrenia P: 1013/awaiting inpatient psych
[2022-02-11] MEDS: HALOPERIDOL 5 MG TAB PO SCH (22:00)
[2022-02-11] MEDS: traZODone 50 MG TAB PO SCH (22:00)
--- NOTE | 2022-02-12 10:08 | Progress Note ---
Subjective - Reason for Consult Consult date: 02/12/22 Reason for consult: mental health evaluation - Chief Complaint Chief complaint: The patient was seen this morning. He continues to pace and respond to internal stimuli. REVIEW OF SYSTEMS MENTAL STATUS EXAMINATION Diagnoses: Schizophrenia Treatment Plan 1013 Start Haldol 5mg po BID Start Trazodone 50mg po QHS Medical: per primary Sitter: defer to primary Disposition: recommend acute psychiatric inpatient treatment Will follow. Thanks Case staffed with Dr. Blandon Medications and Allergies Mental Status Exam - Vital signs Last Vital Signs Temp 98.5 F 02/12/22 07:46 Pulse 72 02/12/22 07:46 Resp 18 02/12/22 07:46 BP 128/86 02/12/22 07:46 Pulse Ox 99 02/12/22 07:46
[2022-02-12] MEDS: HALOPERIDOL 5 MG TAB PO SCH ×2 (12:51→21:56)
[2022-02-12] MEDS: ZIPRASIDONE MESYLATE 20 MG VIAL IM PRN ×2 (13:34→22:48)
[2022-02-12] MEDS: traZODone 50 MG TAB PO SCH (21:56)
[2022-02-13] MEDS: HALOPERIDOL 5 MG TAB PO SCH ×2 (10:38→22:25)
[2022-02-13] MEDS ORDERED: diphenhydrAMINE 25 MG CAP PO ONE (10:40)
--- NOTE | 2022-02-13 11:41 | Emergency Department Report ---
Blank Doc - Documentation Documentation: S: No events reported overnight O: Vital Signs - 8 hr 02/13/22 02/13/22 07:53 09:38 Temperature 97.4 F L Pulse Rate 60 Respiratory 12 Rate Blood Pressure 128/86 [Left] O2 Sat by Pulse 99 98 Oximetry A: Schizophrenia P: 1013/awaiting inpatient psych
--- NOTE | 2022-02-13 12:35 | Progress Note ---
Subjective - Reason for Consult Consult date: 02/13/22 Reason for consult: mental health evaluation - Chief Complaint Chief complaint: The patient was seen this morning. He continues to pace and respond to internal stimuli. REVIEW OF SYSTEMS MENTAL STATUS EXAMINATION Diagnoses: Schizophrenia Treatment Plan 1013 Start Haldol 10mg po BID Start Cogentin 1mg po BID Continue Trazodone 50mg po QHS Medical: per primary Sitter: defer to primary Disposition: recommend acute psychiatric inpatient treatment Will follow. Thanks Case staffed with Dr. Blandon Medications and Allergies Mental Status Exam - Vital signs Last Vital Signs Temp 97.4 F L 02/13/22 07:53 Pulse 60 02/13/22 07:53 Resp 12 02/13/22 07:53 BP 128/86 02/13/22 07:53 Pulse Ox 98 02/13/22 09:38
[2022-02-13] MEDS: BENZTROPINE 1 MG TAB PO SCH (22:25)
[2022-02-13] MEDS: traZODone 50 MG TAB PO SCH (22:25)
--- NOTE | 2022-02-14 13:27 | Progress Note ---
Subjective - Reason for Consult Consult date: 02/14/22 Reason for consult: mental health evaluation - Chief Complaint Chief complaint: The patient was seen this morning. He continues to pace and respond to internal stimuli. REVIEW OF SYSTEMS MENTAL STATUS EXAMINATION Diagnoses: Schizophrenia Treatment Plan 1013 Start Haldol 10mg po BID Start Cogentin 1mg po BID Continue Trazodone 50mg po QHS Medical: per primary Sitter: defer to primary Disposition: recommend acute psychiatric inpatient treatment Will follow. Thanks Case staffed with Dr. Blandon Medications and Allergies Mental Status Exam - Vital signs Last Vital Signs Temp 97.9 F 02/14/22 09:22 Pulse 78 02/14/22 09:22 Resp 15 02/14/22 09:22 BP 137/80 02/14/22 09:22 Pulse Ox 100 02/14/22 09:22
--- NOTE | 2022-02-14 16:35 | Event Note ---
Date: 02/14/22 Patient evaluated today by psychiatry who recommends acute inpatient treatment. Patient remains on 1013 hold at this time. He is currently stable.
[2022-02-14] MEDS: BENZTROPINE 1 MG TAB PO SCH ×2 (18:27→21:52)
[2022-02-14] MEDS: HALOPERIDOL 5 MG TAB PO SCH ×2 (18:27→21:52)
[2022-02-14] MEDS: traZODone 50 MG TAB PO SCH (21:52)
[2022-02-15] MEDS ORDERED: HALOPERIDOL DECANOATE 100 MG/1 ML INJ IM NR (09:52)
--- NOTE | 2022-02-15 09:52 | Progress Note ---
Subjective - Reason for Consult Consult date: 02/15/22 Reason for consult: mental health evaluation - Chief Complaint Chief complaint: The patient was seen this morning. He continues pacing but clearer today. REVIEW OF SYSTEMS MENTAL STATUS EXAMINATION Diagnoses: Schizophrenia Treatment Plan 1013 Start Haldol Dec 50mg IM x1 Start Cogentin 1mg po BID Continue Trazodone 50mg po QHS Medical: per primary Sitter: defer to primary Disposition: Recommend acute psychiatric inpatient treatment Will follow. Thanks Case staffed with Dr. Blandon Medications and Allergies Mental Status Exam - Vital signs Last Vital Signs Temp 98.6 F 02/15/22 08:18 Pulse 70 02/15/22 08:18 Resp 18 02/15/22 08:18 BP 135/78 02/15/22 08:18 Pulse Ox 99 02/15/22 08:18
[2022-02-15] MEDS: BENZTROPINE 1 MG TAB PO SCH (10:37)
--- NOTE | 2022-02-15 13:03 | Event Note ---
Date: 02/15/22 Patient seen this morning had no new complaint. Patient was seen by psychiatrist and to continue current medical treatment including to 1013.
[2022-02-16] MEDS: BENZTROPINE 1 MG TAB PO SCH ×2 (10:31→22:18)
--- NOTE | 2022-02-16 11:32 | Progress Note ---
Subjective - Reason for Consult Consult date: 02/16/22 Reason for consult: psychosis - Chief Complaint Chief complaint: The patient was seen today. He says he's doing fine. He says "better today." The patient says "I didn't take my pills because I didn't have no pills. That's why I'm here." He denies hearing voices, or any hallucinations. He says "no ma'am. at first, but I feel good. Ready to go home." The patient also denies SI/HI. REVIEW OF SYSTEMS Constitutional: Negative for weight loss ENT: Negative for stridor Respiratory: Negative for cough or hemoptysis All other systems reviewed and are negative MENTAL STATUS EXAMINATION General Appearance and Behavior: Age appropriate, wearing appropriate clothes, cooperative, polite with questioning, good eye contact Cooperation: cooperative Psychomotor Behavior: Psychomotor normal Mood: better Affect and affective range: congruent with stated mood Thought Process: Goal directed Thought Content: Reality oriented Speech: Normal volume, Regular rate and rhythm Suicidal Ideation: Denies Homicidal Ideation: Denies Hallucination: "at first but not now." Delusions: None elicited Impulse Control: Limited Insight and Judgment: Limited Memory: Limited Attention:attentive Orientation: Alert and oriented Diagnoses: Schizophrenia Treatment Plan d/c 1013 Next Haldol Dec injection should be given next month around the Cogentin 1mg po BID Trazodone 50mg po QHS Medical: per primary Sitter: defer to primary Disposition: Do not recommend acute psychiatric inpatient treatment. The patient understands that if any SI/HI or any fear of endangerment arise he should seek immediate assistance. The patient to follow up with outpatient psych in 7 to 14 days upon discharge Will sign off. Thanks Case staffed with Dr. Blandon Mental Status Exam - Vital signs Last Vital Signs Temp 98.0 F 02/16/22 08:33 Pulse 73 02/16/22 08:33 Resp 16 02/16/22 08:33 BP 107/69 02/16/22 08:33 Pulse Ox 99 02/16/22 08:33
--- NOTE | 2022-02-16 12:26 | Event Note ---
Date: 02/16/22 Pt seen by the psych team and discontinue patients 1013 as patient continue to denies suicide or any homicidal ideation. Pt is to continue her home medications.
[2022-02-16] MEDS: traZODone 50 MG TAB PO SCH (22:18)
[2022-02-17] MEDS: BENZTROPINE 1 MG TAB PO SCH (11:53)
[2022-02-17 21:03] VITALS: BP 126/76
== END 2022-02-17 21:07 | disposition home or self-care (01) ==
LOC: ED 17:14 → EEVIPCON 17:14 → ED 02-17 21:07
DX: R44.0 Auditory hallucinations (principal); Z20.822 Contact with and (suspected) exposure to COVID-19
CPT/HCPCS: 36415; 80048; 85025; 96372; 99284; J1200; J1631; J3486; U0003; 80320; G0480